=== PATIENT | female | born 1980 | race Caucasian/White ===

== ENCOUNTER → 2020-03-26 | Outpatient (CLI) | payer OTHER ==
--- NOTE | 2020-03-26 13:36 | NEURO WORKBENCH EEG REPORT ---
EEG Report Patient: Yi Zhu ID: [id number] Referring Doctor: Devonte Velazquez MD DOS: 03/26/2020 Medications: OCP, Iron History This is a 39 year old right handed female with a history of migraines and cerebral vessel malformation and pituitary gland. This EEG was requested for headaches. EEG Interpretation This EEG was recorded in the awake and mild drowsy states. The awake EEG is characterized by a low amplitude but well-organized background with alpha squeak at ~12Hz upon eye closure and briefly noted posterior rhythm of 10Hz. The remainder of the background was characterized by a combination of alpha with some beta frequencies. Drowsiness was mild and characterized by slowing of the background rhythms. Photic stimulation resulted in a good driving response. Hyperventilation resulted in mild generalized background slowing. There were no epileptiform abnormalities. The EKG showed a regular rhythm. EEG Classification * Normal EEG Impression This EEG is within normal limits for age. INTERPRETING NEUROLOGIST: Allyson Shepherd MD, [facility] Board Certified in Neurology, with special qualification in Child Neurology, and in Clinical Neurophysiology [facility]
== END ==
LOC: NEURO 08:25
PROVIDERS: ATTEND Pediatrics
DX: R51 Headache (principal); Q28.3 Other malformations of cerebral vessels; E23.6 Other disorders of pituitary gland
CPT/HCPCS: 95819